=== PATIENT | male | born 1970 | race Two or more races ===

== ENCOUNTER 2018-05-24 10:13 | Emergency (ER) | payer OTHER ==
[2018-05-24 10:28] VITALS: BMI 28.1
[2018-05-24] MEDS ORDERED: AMOXICILLIN 500 MG CAPSULE (FP) PO ONE (11:37)
[2018-05-24] MEDS ORDERED: NAPROXEN 500 MG TABLET (FP) PO ONE (11:37)
[2018-05-24] MEDS ORDERED: ONDANSETRON 4 MG TABLET PO ONE (11:37)
[2018-05-24] MEDS ORDERED: DEXAMETHASONE 4 MG TABLET (FP) PO ONE (11:38)
--- NOTE | 2018-05-24 11:43 | PDOC ---
History of Present Illness - General History Source: Patient Exam Limitations: No Limitations - History of Present Illness Initial Comments: 05/24/18 11:50 48-year-old male patient with no past medical history presents with fevers, sore throat since yesterday. Reports positive sick contacts with her daughter. States she's been feeling feverish. Denies cough, nausea, vomiting, diarrhea. States he had not taken any medications. <Brenda Arnold - Last Filed: 05/24/18 11:50> - General History Source: Patient Exam Limitations: No Limitations <Destin Perera - Last Filed: 05/24/18 12:14> - General Chief Complaint: Headache Stated Complaint: HEADACHE/ WEAKNESS Time Seen by Provider: 05/24/18 11:24 Past History <Brenda Arnold - Last Filed: 05/24/18 11:50> - Past Medical History COPD: No - Immunization History Immunization Up to Date: Yes - Suicide/Smoking/Psychosocial Hx Smoking History: Never smoked Drug/Substance Use Hx: No <Destin Perera - Last Filed: 05/24/18 12:14> - Past Medical History Allergies/Adverse Reactions: Allergies Allergy/AdvReac Type Severity Reaction Status Date / Time No Known Allergies Allergy Verified 05/24/18 10:24 Home Medications: Ambulatory Orders Amoxicillin - [Amoxicillin 500mg Capsule -] 500 mg PO TID #20 capsule 05/24/18 Naproxen 500 mg PO BID PRN #20 tablet 05/24/18 *Physical Exam - Vital Signs Last Vital Signs Temp Pulse Resp BP Pulse Ox 102.9 F H 107 H 16 133/84 96 05/24/18 10:25 05/24/18 10:25 05/24/18 10:25 05/24/18 10:25 05/24/18 10:25 - Physical Exam Comments: 05/24/18 11:53 GENERAL: Awake, alert, and fully oriented, in no acute distress HEAD: No signs of trauma EYES: PERRLA, EOMI, sclera anicteric, conjunctiva clear ENT: (+) erythematous oropharynx with exudates, uvula midline . Auricles normal inspection, hearing grossly normal, nares patent, Moist mucosa NECK: Normal ROM, supple, no lymphadenopathy, JVD, or masses LUNGS: Breath sounds equal, clear to auscultation bilaterally. No wheezes, and no crackles HEART: Regular rate and rhythm, normal S1 and S2, no murmurs, rubs or gallops ABDOMEN: Soft, nontender, normoactive bowel sounds. No guarding, no rebound. No masses EXTREMITIES: Normal range of motion, no edema. No clubbing or cyanosis. No cords, erythema, or tenderness NEUROLOGICAL: Cranial nerves II through XII grossly intact. Normal speech, normal gait SKIN: Warm, Dry, normal turgor, no rashes or lesions noted. <Brenda Arnold - Last Filed: 05/24/18 11:50> - Vital Signs Last Vital Signs Temp Pulse Resp BP Pulse Ox 102.9 F H 107 H 16 133/84 96 05/24/18 10:25 05/24/18 10:25 05/24/18 10:25 05/24/18 10:25 05/24/18 10:25 <Destin Perera - Last Filed: 05/24/18 12:14> Moderate Sedation - Procedure Monitoring Vital Signs: Procedure Monitoring Vital Signs Temperature 102.9 F H 05/24/18 10:25 Pulse Rate 107 H 05/24/18 10:25 Respiratory Rate 16 05/24/18 10:25 Blood Pressure 133/84 05/24/18 10:25 O2 Sat by Pulse Oximetry (%) 96 05/24/18 10:25 <Brenda Arnold - Last Filed: 05/24/18 11:50> - Procedure Monitoring Vital Signs: Procedure Monitoring Vital Signs Temperature 102.9 F H 05/24/18 10:25 Pulse Rate 107 H 05/24/18 10:25 Respiratory Rate 16 05/24/18 10:25 Blood Pressure 133/84 05/24/18 10:25 O2 Sat by Pulse Oximetry (%) 96 05/24/18 10:25 <Destin Perera - Last Filed: 05/24/18 12:14> Medical Decision Making - Medical Decision Making 05/24/18 11:40 A portion of this note was documented by scribe services under my direction. I have reviewed the details of the note, within reason, and agree with the documentation with the following case summary and management plan written by me. Patient treated in the ED. Nursing notes are reviewed and incorporated into the medical decision-making. Vital signs reviewed. Vital Signs Temp Pulse Resp BP Pulse Ox 102.9 F H 107 H 16 133/84 96 05/24/18 10:25 05/24/18 10:25 05/24/18 10:25 05/24/18 10:25 05/24/18 10:25 48-year-old male patient with no past medical history presents with fevers, sore throat since yesterday. Reports positive sick contacts with her daughter. States she's been feeling feverish. Denies cough, nausea, vomiting, diarrhea. States he had not taken any medications. Patient's oropharynx is erythematous with peritonsillar exudates. This is concerning for strep pharyngitis. We'll obtain a throat culture but we'll initiate amoxicillin. Treat symptoms and treat fevers and reassess. If the temperature is improved the patient feels better, the patient be discharged home with antibiotics. <Destin Perera - Last Filed: 05/24/18 12:14> *DC/Admit/Observation/Transfer - Attestations Scribe Attestion: 05/24/18 11:53 Documentation prepared by Brenda Arnold, acting as medical billing and coding instructor for Destin Perera MD. <Brenda Arnold - Last Filed: 05/24/18 11:50> - Discharge Dispostion Decision to Admit order: No <Destin Perera - Last Filed: 05/24/18 12:14> Diagnosis at time of Disposition: Pharyngitis Qualifiers: Pharyngitis/tonsillitis etiology: unspecified etiology Qualified Code(s): J02.9 - Acute pharyngitis, unspecified - Discharge Dispostion Disposition: HOME Condition at time of disposition: Stable - Prescriptions Prescriptions: Amoxicillin - [Amoxicillin 500mg Capsule -] 500 mg PO TID #20 capsule Naproxen 500 mg PO BID PRN #20 tablet PRN Reason: Pain/Fever - Referrals Referrals: Em Hamilton MD [Primary Care Provider] - - Patient Instructions Printed Discharge Instructions: DI for Pharyngitis/Tonsillopharyngitis -- Adult Additional Instructions: Your throat culture for strep throat is pending. However, given the appearance of your throat, we will be treating you with antibiotics (amoxicillin 500 mg every 8 hours for 1 week) Please take the antibiotics until completion. Take 500 mg naproxen every 12 hours as needed for pain or fever. It may take several days before your symptoms improve. Drink plenty of fluids and rest. Print Language: DANISH - Post Discharge Activity Forms/Work/School Notes: Back to Work
[2018-05-24] MEDS ORDERED: AMOXICILLIN 500 MG CAPSULE (FP) ONE (11:45)
[2018-05-24] MEDS ORDERED: ONDANSETRON *ODT* 4 MG TABLET ONE (11:45)
[2018-05-24] MEDS ORDERED: NAPROXEN 500 MG TABLET (FP) ONE (11:45)
[2018-05-24] MEDS ORDERED: ACETAMINOPHEN 325 MG TABLET (FP) PO ONE (12:33)
[2018-05-24] MEDS ORDERED: ACETAMINOPHEN 325 MG TABLET (FP) ONE (12:35)
[2018-05-24 13:12] VITALS: BP 128/78; PULSE 82; TEMP 100.2
== END 2018-05-24 13:13 | disposition home or self-care (01) ==
LOC: JER 10:13
DX: J02.9 Acute pharyngitis, unspecified (principal)
CPT/HCPCS: 87880; 99282-25

== ENCOUNTER 2019-04-25 13:12 | Emergency (ER) | payer OTHER ==
[2019-04-25 13:18] VITALS: BP 107/51; PULSE 98; TEMP 102.9; BMI 28.1
[2019-04-25] MEDS ORDERED: ACETAMINOPHEN 500 MG TABLET (FP) PO ONE (14:10)
[2019-04-25] MEDS ORDERED: ACETAMINOPHEN 500 MG TABLET (FP) ONE (14:11)
--- NOTE | 2019-04-25 14:12 | PDOC ---
History of Present Illness - General Chief Complaint: Cold Symptoms Stated Complaint: COLD SYMPTOMS Time Seen by Provider: 04/25/19 13:19 History Source: Patient Exam Limitations: No Limitations - History of Present Illness Initial Comments: 04/25/19 14:11 HISTORY OF PRESENT ILLNESS: 49-year-old male denies medical history presents emergency department for evaluation of fevers, sore throat, nasal congestion, moist cough, body aches and headache for the past 2 days. Patient reports a decreased appetite. Patient's child was recently diagnosed with influenza and is been treated with Tamiflu starting approximately 5 days ago. No recent travel. PAST MEDICAL HISTORY: Denies past medical history SURGICAL HISTORY: Denies ALLERGIES: No known drug allergies REVIEW OF SYSTEMS General/Constitutional: +fever. Denies weakness, weight change. HEENT: Denies change in vision. Denies ear pain or discharge. +sore throat. Cardiovascular: Denies chest pain or shortness of breath. Respiratory: Moist productive cough. Denies wheezing, or hemoptysis. Gastrointestinal: Denies nausea, vomiting, diarrhea or constipation. Denies rectal bleeding. Genitourinary: Denies dysuria, frequency, or change in urination. Musculoskeletal: +myalgias. Denies neck or back pain. Skin and breasts: Denies rash or easy bruising. Neurologic: Denies headache, vertigo, loss of consciousness, or loss of sensation. Psychiatric: Denies depression or anxiety. Endocrine: Denies increased thirst. Denies abnormal weight change. Hematologic/Lymphatic: Denies anemia, easy bleeding, or history of blood clots. Allergic/Immunologic: Denies hives or skin allergy. Denies latex allergy. PHYSICAL EXAM General Appearance: Well-appearing, appropriately dressed. No apparent distress , no intoxication. HEENT: EOMI, PERRLA, normal voice, TMs retracted bilaterally. No conjunctival pallor. No photophobia, scleral icterus. Oropharynx erythematous without lesions or exudate. Cobblestoning noted in the posterior. No nasal discharge present. Neck: Supple. Trachea midline. No tenderness, rigidity, carotid bruit, stridor , or thyromegaly. Nontender anterior cervical lymphadenopathy present. Respiratory/Chest: Lungs CTAB. No shortness of breath, chest tenderness, respiratory distress, accessory muscle use. No crackles, rales, rhonchi, stridor , wheezing, dullness Cardiovascular: RRR. S1, S2. No JVD, murmur, bradycardia, tachycardia. Vascular Pulses: Dorsalis-Pedis (R): 2+, Dorsalis-Pedis (L): 2+ Gastrointestinal/Abdominal: Normal bowel sounds. Abdomen soft, non-distended. No tenderness or rebound tenderness. No organomegaly, pulsatile mass, guarding, hernia, hepatomegaly, splenomegaly. Musculoskeletal/Extremities: Normal inspection. FROM of all extremities, normal capillary refill. Pelvis Stable. No CVA tenderness. No tenderness to extremities, pedal edema, swelling, erythema or deformity. Integumentary: Appropriate color, dry, warm. 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 Fully oriented, alert. Appropriate mood/affect. Motor strength 5/5. No appreciable EOM palsy, facial droop or sensory deficit. 04/26/19 11:06 Past History - Past Medical History Allergies/Adverse Reactions: Allergies Allergy/AdvReac Type Severity Reaction Status Date / Time No Known Allergies Allergy Verified 05/24/18 10:24 Home Medications: Ambulatory Orders Amoxicillin - [Amoxicillin 500mg Capsule -] 500 mg PO TID #20 capsule 05/24/18 Naproxen 500 mg PO BID PRN #20 tablet 05/24/18 Oseltamivir Phosphate [Tamiflu -] 75 mg PO BID #10 capsule 04/25/19 COPD: No - Immunization History Immunization Up to Date: Yes - Psycho Social/Smoking Cessation Hx Smoking History: Never smoked Information on smoking cessation initiated: No Hx Alcohol Use: No Drug/Substance Use Hx: No *Physical Exam - Vital Signs Last Vital Signs Temp Pulse Resp BP Pulse Ox 102.9 F H 98 H 17 107/51 L 98 04/25/19 13:14 04/25/19 13:14 04/25/19 13:14 04/25/19 13:14 04/25/19 13:14 Medical Decision Making - Medical Decision Making 04/25/19 14:11 A/P: 49-year-old male with 2 days of influenza-like illness As patient has exposure to 2 children who have been recently diagnosed with known influenza and are currently being treated believe there is a high likelihood that this patient will test positive for influenza. Clinical exam is consistent with influenza-like infection. I will defer testing at this time given the high likelihood of a positive test. Risks and benefits of receiving Tamiflu have been discussed with the patient and patient opts to be treated with the Tamiflu as an outpatient. Prescription for Tamiflu sent to patient's preferred pharmacy. Tylenol 1 g orally now Discharge home Discharge - Discharge Information Problems reviewed: Yes Clinical Impression/Diagnosis: Influenza-like illness Condition: Fair Disposition: HOME - Admission No - Additional Discharge Information Prescriptions: Oseltamivir Phosphate [Tamiflu -] 75 mg PO BID #10 capsule - Follow up/Referral Referrals: Dejan Bentley MD [Primary Care Provider] - - Patient Discharge Instructions Additional Instructions: Rest, drink lots of fluids: Teas, water, soups, Pedialyte Saltwater gargles Steamy showers/seem to face break up mucus Old-fashioned treatments help! Avoid contact with others until fevers and cough resolved as this is very contagious Lots of handwashing and good hygiene Continue [id number] medications for symptomatic relief Tylenol or Motrin for fever and pain Take all of Tamiflu as directed: 1 tab every 12 hours for 5 days Followup with private physician in one to 2 days as needed or if worsening Return to emergency department for worsened symptoms, fevers, dehydration Influenza takes between 5 and 7 days for resolution Do not participate in any activity, work, or school until fevers and cough are gone for at least one day aubrie Sotoos lquidos: ts, agua, sopas, pedialyte Grgaras de agua salada Duchas de vapor / parecen enfrentar la mucosidad Los tratamientos pasados ??de moda ayudan! Evite el contacto con otros hasta que la fiebre y la tos se hayan resuelto, ya que esto es muy contagioso. Lavado de martin y buena higiene. Continuar con los medicamentos de venta ritu para el alivio sintomtico. Tylenol o Motrin para la fiebre y el dolor. [place] todo Tamiflu segn las indicaciones: 1 pestaa cada 12 horas jessica 5 mcdonald. Seguimiento con un mdico privado en donis o 2 mcdonald segn sea necesario o si empeora Regrese al departamento de emergencias por sntomas empeorados, fiebre, deshidratacin. La influenza tarda entre 5 y 7 mcdonald en resolverse No participe en ninguna actividad, trabajo o escuela hasta que la fiebre y la tos hayan desaparecido jessica al menos un da. - Post Discharge Activity Work/Back to School Note: Back to Work
== END 2019-04-25 14:16 | disposition home or self-care (01) ==
LOC: JERFT 13:12
DX: J11.1 Influenza due to unidentified influenza virus with other respiratory manifestations (principal)
CPT/HCPCS: 99283-25